=== PATIENT | female | born 1950 | race Caucasian/White ===

== ENCOUNTER 2023-10-07 07:20 | Emergency (ER) | payer OTHER ==
[~2023-10-07] VITALS: Ht 170.2 cm; Wt 95.4 kg
[2023-10-07] MEDS: MORPHINE SULFATE 4 MG/ML SYR/VIAL IV ONE (07:45)
[2023-10-07] MEDS: ONDANSETRON HCL 4 MG/2 ML VIAL IV ONE (07:45)
[2023-10-07 09:06] VITALS: PULSE 74; RESP 17; O2SAT 100
[2023-10-07 10:21] VITALS: BP 98/42; PULSE 74; RESP 15; TEMP 98.4; O2SAT 99
== END 2023-10-07 10:45 | disposition short-term general hospital (02) ==
LOC: EDBD 07:20 → ER 07:20
DX: M25.552 Pain in left hip (principal); I10 Essential (primary) hypertension; Z96.642 Presence of left artificial hip joint; Z86.73 Personal history of transient ischemic attack (TIA), and cerebral infarction without residual deficits; Z98.890 Other specified postprocedural states; Z88.5 Allergy status to narcotic agent
CPT/HCPCS: 96374; 96375; 99285; J2270; J2405

== ENCOUNTER 2024-08-13 11:11 | Emergency (ER) | payer OTHER ==
[~2024-08-13] VITALS: Ht 172.7 cm; Wt 91.0 kg
--- NOTE | 2024-08-13 11:24 | ED.PDOC ---
History of Present Illness HPI Comments 74-year-old female with PMHx HTN, Arthritis brought in by EMS presents with a chief complaint of weakness, dizziness, and hypotension. Patient was at [facility] for her physical therapy, but she became weak and dizzy. Staff there checked her vitals and found patient to be hypotensive in the low 80s systolic. Patient was given a liter of fluids prior to EMS arrival. Patient has also had 100lb weight loss and has not been drinking a lot of water since yesterday. 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 [employer]FER History: No Pertinent [employer]INGLE [employer]OOFER History Family History Family History: Unknown Social History Smoker: Non-Smoker Alcohol: Denies ETOH Use Drugs: Denies Drug Use Lives In: Home Constitutional: reports: weakness; denies: chills, diaphoresis, fatigue, fever, malaise, sweats, others EENTM: denies: blurred vision, double vision, ear bleeding, ear discharge, ear drainage, ear pain, ear ringing, eye pain, eye redness, hearing loss, mouth pain, mouth swelling, nasal discharge, nose bleeding, nose congestion, nose pain, photophobia, tearing, throat pain, throat swelling, voice changes, others Respiratory: denies: cough, hemoptysis, orthopnea, SOB at rest, shortness of breath, SOB with excertion, stridor, wheezing, others Cardiovascular: denies: chest pain, dizzy spells, diaphoresis, Dyspnea on exertion, edema, irregular heart beat, left arm pain, lightheadedness, palpitations, PND, syncope, others Gastrointestinal: denies: abdomen distended, abdominal pain, blood streaked bowels, constipated, diarrhea, dysphagia, difficulty swallowing, hematemesis, melena, nausea, poor appetite, poor fluid intake, rectal bleeding, rectal pain, vomiting, others Genitourinary: denies: abnormal vagina bleeding, burning, dyspareunia, dysuria, flank pain, frequency, hematuria, incontinence, pain, , vagina discharge, urgency, others Neurological: reports: dizziness; denies: fainting, headache, left sided numbness, left sided weakness, numbness, paresthesia, pre-existing deficit, right sided numbness, right sided weakness, seizure, speech problems, tingling, tremors, weakness, others Musculoskeletal: denies: back pain, gout, joint pain, joint swelling, muscle pain, muscle stiffness, neck pain, others Integumetry: denies: bruises, change in color, change in hair/nails, dryness, l aceration, lesions, lumps, rash, wounds, others Allergic/Immunocompromised: denies: Difficulty Healing, Frequent Infections, Hives, Itching, others Hematologic/Lymphatic: denies: anemia, blood clots, easy bleeding, easy bruising, swollen glands, others Endocrine: denies: excessive hunger, excessive sweating, excessive thirst, excessive urination, flushing, intolerance to cold, intolerance to heat, unexplained weight gain, unexplained weight loss, others Psychiatric: denies: anxiety, bipolar disorder, depression, hopeless, panic disorder, schizophrenia, sleepless, suicidal, others All Other Systems: Reviewed and Negative Physical Exam General Appearance: No Apparent Distress, Normal HEENT: Normal ENT Inspection, Pharynx Normal, TMs Normal Neck: Full Range of Motion, Non-Tender, Normal, Normal Inspection Respiratory: Chest Non-Tender, Lungs Clear, No Accessory Muscle Use, No Respiratory Distress, Normal Breath Sounds Cardiovascular: No Edema, No JVD, No Murmur, No Gallop, Normal Peripheral Pulses, Regular Rate/Rhythm Breast Exam: Deferred Gastrointestinal: No Organomegaly, Non Tender, No Pulsatile Mass, Normal Bowel Sounds, Soft Genitalia: Deferred Pelvic: Deferred Rectal: Deferred Extremities: No calf tenderness, Normal capillary refill, Normal inspection, Normal range of motion, Non-tender, No pedal edema Musculoskeletal : Apperance: Normal Neurologic: Alert, electronic components assembler II-XII nml as Tested, No Motor Deficits, Normal Affect, Normal Mood, No Sensory Deficits Cerebellar Function: Normal Reflexes: Normal Skin: Dry, Normal Color, Warm Lymphatic: No Adenopathy Was a procedure done? Was a procedure done?: No Differential Dx Considerations may include: ACS, UTI, viral syndrome, cardiogenic shock, pneumonia X-Ray, Labs, Meds, VS Vital Signs Date Time Temp Pulse Resp B/P (MAP) Pulse Ox O2 Delivery O2 Flow Rate FiO2 08/13/24 12:38 62 16 96 Room Air* 0 21 08/13/24 12:30 56 16 109/68 (82) 96 08/13/24 12:00 67 08/13/24 12:00 97.8 68 16 126/48 (74) 96 97.8 08/13/24 11:24 98.0 62 18 92/59 (70) 98 98.0 08/13/24 11:15 65 Lab Test 08/13/24 12:49 08/13/24 12:45 08/13/24 11:38 08/13/24 11:35 Range/Units Troponin I High Sensitivity < 3 L 3 L </=34 ng/L Urine Color Colorless Yellow Urine Clarity Clear Clear Urine pH 5.0 5.0-9.0 Urine Specific [place] 1.004 1.001-1.035 Urine Protein Negative Negative Urine Ketones Negative Negative Urine Blood Negative Negative /uL Urine Nitrite Negative Negative Urine Bilirubin Negative Negative Urine Urobilinogen Normal Negative mg/dL Urine Leukocyte Esterase 3+ Negative /uL Urine RBC 5 0 - 4 /hpf Urine Microscopic WBC 11 H 0-5 /HPF Urine Squamous Epithelial Cells Few <5 /hpf Urine Bacteria None seen None Seen /hpf Urine Glucose Normal Normal mg/dL POC Glucose 112 H 70-106 mg/dl White Blood Count 7.2 4.4-10.8 10^3/uL Red Blood Count 4.89 4.0-5.20 10^6/uL Hemoglobin 15.1 12.2-16.2 g/dL Hematocrit 45.6 36.0-46.0 % Mean Corpuscular Volume 93.3 80.0-100.0 fL Mean Corpuscular Hemoglobin 31.0 28.0-32.0 pg Mean Corpuscular Hemoglobin Concent 33.2 32.0-36.0 g/dL Red Cell Distribution Width 15.2 H 11.8-14.3 % Platelet Count 232 140-450 10^3/uL Mean Platelet Volume 7.6 6.9-10.8 fL Neutrophils (%) (Auto) 81.8 H 37.0-80.0 % Lymphocytes (%) (Auto) 10.9 10.0-50.0 % Monocytes (%) (Auto) 6.7 0.0-12.0 % Eosinophils (%) (Auto) 0.3 0.0-7.0 % Basophils (%) (Auto) 0.3 0.0-2.0 % Neutrophils # (Auto) 5.9 1.6-8.6 10 ^3/uL Lymphocytes # (Auto) 0.8 0.4-5.4 10 ^3/uL Monocytes # (Auto) 0.5 0-1.3 10 ^3/uL Eosinophils # (Auto) 0 0-0.8 10 ^3/uL Basophils # (Auto) 0 0-0.2 10 ^3/uL Nucleated Red Blood Cells 0.1 % Sodium Level 138 136-145 mmol/L Potassium Level 3.7 3.5-5.1 mmol/L Chloride Level 108 H 98-107 mmol/L Carbon Dioxide Level 17 L 20-31 mmol/L Anion Gap 13 5-15 Blood Urea Nitrogen 15 9-23 mg/dL Creatinine 0.92 0.550-1.02 mg/dL Glomerular Filtration Rate Calc 66 >90 mL/min BUN/Creatinine Ratio 16.3 10.0-20.0 Serum Glucose 108 H 74-106 mg/dL Calcium Level 10.4 8.7-10.4 mg/dL B-Type Natriuretic Peptide 7.98 0-100 pg/mL Current Medications Medications (Trade) Dose Ordered Sig/Tanya Route Start Time Stop Time Status Last Admin Sodium Chloride 1,000 ml @ 1,000 mls/hr Q1H ONCE IV 08/13/24 11:30 08/13/24 12:29 DC 08/13/24 11:35 Sodium Chloride 1,000 ml @ 1,000 mls/hr Q1H ONCE IV 08/13/24 14:00 08/13/24 14:59 08/13/24 14:14 Cefepime HCl 50 ml @ 50 mls/hr ONCE ONCE IV 08/13/24 14:00 08/13/24 14:59 08/13/24 14:12 Time of 1ST Reevaluation: 11:45 Reevaluation 1ST: Unchanged Patient Education/Counseling: Diagnosis, Treatment Family Education/Counseling: No Family Present SEPSIS Sepsis Screen Physician Orders Electrocardigram (08/13/24 11:17) Chest Portable (08/13/24 11:21) Troponin-I Hs (08/13/24 14:21) Lactic Acid W/ Reflex Order (08/13/24 13:56) Blood Culture (08/13/24 13:56) Sodium Chloride 0.9% (08/13/24 14:00) Cefepime 2gm/50ml Ns (Maxipime 2gm/50ml) (08/13/24 14:00) Vancomycin 1gm/200ml Pm (08/13/24 15:00) Vital Signs Date Time Temp Pulse Resp B/P (MAP) Pulse Ox O2 Delivery O2 Flow Rate FiO2 08/13/24 12:38 62 16 96 Room Air* 0 21 08/13/24 12:30 56 16 109/68 (82) 96 08/13/24 12:00 67 08/13/24 12:00 97.8 68 16 126/48 (74) 96 97.8 08/13/24 11:24 98.0 62 18 92/59 (70) 98 98.0 08/13/24 11:15 65 Laboratory Tests Test 08/13/24 11:35 White Blood Count 7.2 10^3/uL (4.4-10.8) Medications Medications Dose Ordered Sig/Tanya Route Start Time Stop Time Status Last Admin Dose Admin Cefepime HCl 50 ml @ 50 mls/hr ONCE ONCE IV 08/13/24 14:00 08/13/24 14:59 08/13/24 14:12 Sodium Chloride 1,000 ml @ 1,000 mls/hr Q1H ONCE IV 08/13/24 11:30 08/13/24 12:29 DC 08/13/24 11:35 Sodium Chloride 1,000 ml @ 1,000 mls/hr Q1H ONCE IV 08/13/24 14:00 08/13/24 14:59 08/13/24 14:14 Departure 1 Departure Time of Disposition: 14:40 ([facility] Case [id number] with hypotension and a urinary tract infection. Patient is not septic. Patient is feeling significantly better after receiving fluids we will empirically cover patient with antibiotics and transfer patient to [facility]) Impression: Primary Impression: Acute cystitis Qualified Codes: N30.00 - Acute cystitis without hematuria Additional Impressions: Hypotension Qualified Codes: I95.9 - Hypotension, unspecified Generalized weakness Disposition: 02 SHORT TERM HOSPITAL Admit to: Med Surg Condition: Serious Critical Care Note Critical Care Time?: No Stability Stability form required: No Heart Score Heart Score: Heart Score Response (Comments) Value History N/A 0 EKG N/A 0 Age N/A 0 Risk Factors N/A 0 Troponin N/A 0 Total 0 I personally scribed for NICKY LEE MD ([email or web address]) on 08/13/24 at 11:24. Electronically submitted by Cj Potter [email or web address]). NICKY LEE MD Aug 13, 2024 11:24
[2024-08-13] MEDS: SODIUM CHLORIDE 0.9% 1,000 ML IV ONE ×2 (11:35→14:14)
[2024-08-13 12:01] LABS: Potassium 3.7 mmol/L (3.5-5.1); Sodium 138 mmol/L (136-145)
[2024-08-13 12:02] LABS: Anion Gap 13 (5-15); Carbon Dioxide 17 mmol/L (20-31); Chloride 108 mmol/L (98-107)
[2024-08-13 12:03] LABS: Calcium 10.4 mg/dL (8.7-10.4)
[2024-08-13 12:07] LABS: BUN/Creatinine Ratio 16.3 (10.0-20.0); Blood Urea Nitrogen 15 mg/dL (9-23)
[2024-08-13 12:09] LABS: Glucose 108 mg/dL (74-106)
[2024-08-13 12:11] LABS: Hematocrit 45.6 % (36.0-46.0); Hemoglobin 15.1 g/dL (12.2-16.2); Mean Corpuscular Hemoglobin 31.0 pg (28.0-32.0); Mean Corpuscular Volume 93.3 fL (80.0-100.0); Nucleated Red Blood Cells % 0.1 %
[2024-08-13 12:38] VITALS: PULSE 62; RESP 16; O2SAT 96
[2024-08-13 13:48] LABS: Urine Protein, UAD Negative (Negative)
--- NOTE | 2024-08-13 13:54 | DVH ---
CHEST RADIOGRAPH Indication: weakness Technique: Single frontal view of the chest was obtained COMPARISON: None FINDINGS: Lines and Tubes: None Lungs: Clear Pleura: No effusion. No pneumothorax. Cardiomediastinal contours: Unremarkable Bones: Unremarkable IMPRESSION: No acute disease.
[2024-08-13] MEDS: CEFEPIME 2GM/50ML NS 50 ML IV ONE (14:12)
--- NOTE | 2024-08-13 15:18 | ECG ---
[facility] Test Date: 2024-08-13 Test Time: 11:15:47 Pat Name: BROOKLYN YI Department: ED Room: Gender: F [employer] Contractor: SEDRICK : 1950 Requested By: NICKY LEE Order Number: [id number] Reading MD: Khurram Salgado Measurements Intervals [place] Rate: 65 P: 37 DE: 178 QRS: 19 QRSD: 135 T: 99 QT: 442 QTc: 460 Interpretive Statements Sinus rhythm Nonspecific intraventricular conduction delay Nonspecific T abnrm, anterolateral leads Electronically Signed On 08-14-2024 19:05:51 PDT by Khurram Salgado Please click the below link to view image of tracing.
[2024-08-13] MEDS: VANCOMYCIN 1GM/200ML PM 200 ML IV ONE (15:32)
[2024-08-13 15:44] VITALS: BP 147/45; PULSE 68; RESP 16; TEMP 97.8; O2SAT 98
== END 2024-08-13 15:44 | disposition short-term general hospital (02) ==
LOC: EDBD 11:11 → ER 11:11
DX: N30.00 Acute cystitis without hematuria (principal); I95.9 Hypotension, unspecified; I10 Essential (primary) hypertension; R06.02 Shortness of breath; Z86.73 Personal history of transient ischemic attack (TIA), and cerebral infarction without residual deficits; Z88.5 Allergy status to narcotic agent
CPT/HCPCS: 36415; 71045; 80048; 81001; 82947; 83605; 83880; 84484; 85025; 87040; 93005; 96361; 96365; 99285; J0692; J7030; 82962